=== PATIENT | female | born 1965 | race Caucasian/White ===

== ENCOUNTER 2017-09-21 10:30 | Outpatient (CLI) | payer BC, OTHER ==
--- NOTE | 2017-09-21 12:16 | RAD ---
THREE VIEWS LEFT FINGER: 09/21/2017 HISTORY: Joint pain. COMPARISON: None. FINDINGS: No displaced fracture or evidence of dislocation. No radiopaque foreign body or subcutaneous gas. T here is mild degenerative change involving the distal interphalangeal joint. IMPRESSION: No acute osseous abnormality. POS: [facility]
--- NOTE | 2017-09-21 12:19 | RAD ---
RADIOGRAPH RIGHT THIRD DIGIT 3 VIEWS: Date: 09/21/17 Time: 1110 hours HISTORY: 52-year-old female with pain in joint. FINDINGS: No destructive osseous lesion identified. No periosteal elevation. No fracture or dislocation. Degene rative changes at the DIP are minimal. No major pathology identified involving the MCP and PIP joints . No soft tissue calcifications. IMPRESSION: No major pathology identified. POS: [facility]
== END 2017-09-21 10:31 | disposition home or self-care (01) ==
LOC: RAD 10:30
PROVIDERS: ATTEND Specialist
DX: Z00.00 Encounter for general adult medical examination without abnormal findings (principal)

== ENCOUNTER 2017-10-11 18:20 | Emergency (ER) | payer OTHER ==
[~2017-10-11 18:20] MED LIST: ISOVUE-370 76%-LOCM 1 ML ONE
[2017-10-11 18:46] LABS: #Basophils 0.1 thou/uL (0.0-0.2); #Eosinphils 0.1 thou/uL (0.0-0.7); #Lymphocytes 2.8 thou/uL (1.20-3.40); #Monocytes 0.8 thou/uL (0.11-0.59); #Neutrophils 6.7 thou/uL (1.40-6.50); %Eosinophils 0.7 % (0.0-10.0); %Lymphocytes 26.5 % (21.0-51.0); %Monocytes 7.4 % (0.0-10.0); %Neutrophils 64.3 % (42.0-75.0); Hemoglobin 14.1 g/dL (12.0-16.0); Mean Corpuscular HGB CONC 34.1 g/dL (32.0-36.0); Mean Corpuscular Hemoglobin 30.5 pg (27.0-31.0); Mean Corpuscular Volume 89.5 fl (81.0-99.0); Mean Platelet Volume 6.3 fL (7.4-10.4); Platelet Count 355 thou/uL (130-400); RBC Distribution Width 12.1 % (11.5-14.5); Red Blood Cell (RBC) Count 4.61 mill/uL (4.20-5.40); White Blood Cell (WBC) Count 10.4 thou/uL (4.8-10.8)
[2017-10-11 18:52] LABS: Bilirubin Negative (Negative); Blood, Urine Negative (Negative); Clarity CLEAR (Clear); Glucose, Urine (Dipstick) Negative (Negative); Leukocyte Moderate (Negative); Nitrite Negative (Negative); Protein, Urine (Dipstick) Negative (Neg-Trace); Specific Gravity, Urine 1.014 (1.002-1.036); Urobilinogen 0.2 mg/dL (0.2-1.0)
[2017-10-11 18:54] LABS: Bacteria/HPF None Seen HPF (None Seen); Hyaline Casts/LPF 0-3 HYALINE CAST LPF (0-3 Hyaline); Pathc Cast-AUWi Flag 0.43 (0-2.49); RBC/HPF 0-3 HPF (0-3); Squamous Epithelial 0-3 HPF (0-3)
[2017-10-11 19:07] LABS: ALT (SGPT) 18 U/L (8-55); AST (SGOT) 14 U/L (5-34); Albumin 4.6 g/dL (3.5-5.0); Alkaline Phosphatase 109 U/L (40-150); Anion Gap 10 mmol/L (10-20); BUN (Urea Nitrogen) 17 mg/dL (9.8-20.1); Bilirubin, Total 0.4 mg/dL (0.2-1.2); Calc. Creatinine Clearance 0 mL/min (70-130); Calcium 9.8 mg/dL (7.8-10.44); Carbon Dioxide 25 mmol/L (22-29); Chloride 106 mmol/L (98-107); Estimated GFR-MDRD 76; Globulin 2.8 g/dL (2.4-3.5); Glucose 109 mg/dL (70-105); Lipase 50 U/L (8-78); Potassium 3.8 mmol/L (3.5-5.1); Protein, Total 7.4 g/dL (6.0-8.3); Sodium 137 mmol/L (136-145)
[2017-10-11] MEDS ORDERED: Pantoprazole 40 MG VIAL ONE (21:42)
[2017-10-11] MEDS ORDERED: Metoclopramide HCl 10 MG/2 ML VIAL ONE (21:44)
--- NOTE | 2017-10-11 22:39 | CT ---
ABDOMEN AND PELVIS CT WITH CONTRAST ENTERIC CONTRAST NOT ADMINISTERED PER ORDERING PHYSICIAN REQUEST WHICH PRECLUDES ASSESSMENT OF THE PETE WEL 10/11/[address] CT abdomen and pelvis 02/04/17. INDICATION; Epigastric pain. FINDINGS: Mild volume loss is seen at the lung bases. Evidence of prior cholecystectomy. No peripancreatic infl ammation. Exophytic cyst of the medial right kidney is present, grossly stable in volume given differ ences in technique comparing to prior noncontrast exam. No evidence of hydronephrosis of either kidne y. No adrenal mass. No acute abnormality of the liver or spleen. No pneumoperitoneum or significant a scites. There is colonic diverticulosis. Mild wall prominence of the sigmoid colon may relate to dive rticular disease, incompletely assessed on the basis of technique of the exam. There are scattered at herosclerosis, mild in degree. Electronic device of the left gluteal soft tissues produces streak art ifact limiting visualization of this region. Scattered osseous degenerative change is present. IMPRESSION: 1. Colonic diverticulosis. There is wall prominence of the unopacified, underdistended sigmoid c olon. Correlate clinically. 2. Prior cholecystectomy. 3. No peripancreatic inflammation to account for epigastric pain. 4. Right renal cyst. POS: [facility]
[2017-10-11] MEDS ORDERED: Morphine 4 MG/ML VIAL ONE (22:55)
[2017-10-11] MEDS ORDERED: Ondansetron ODT 4 MG TAB ONE ×2 (22:55→22:56)
[2017-10-11] MEDS ORDERED: diphenhydrAMINE 25 MG CAP ONE (23:14)
== END 2017-10-11 23:51 | disposition home or self-care (01) ==
LOC: ERS 18:20
DX: K52.9 Noninfective gastroenteritis and colitis, unspecified (principal); G43.909 Migraine, unspecified, not intractable, without status migrainosus; Z79.899 Other long term (current) drug therapy
CPT/HCPCS: 36415; 74177; 80053; 81003; 81015; 83690; 85025; 96365; 96375; C9113; J2270; J2765; Q0162

== ENCOUNTER 2017-10-16 22:13 | Emergency (ER) | payer OTHER ==
[2017-10-16 23:15] LABS: #Basophils 0.1 thou/uL (0.0-0.2); #Eosinphils 0.2 thou/uL (0.0-0.7); #Lymphocytes 3.1 thou/uL (1.20-3.40); #Monocytes 0.7 thou/uL (0.11-0.59); #Neutrophils 4.4 thou/uL (1.40-6.50); %Basophils 0.7 % (0.0-1.0); %Eosinophils 2.6 % (0.0-10.0); %Monocytes 8.2 % (0.0-10.0); %Neutrophils 51.4 % (42.0-75.0); Mean Corpuscular HGB CONC 35.5 g/dL (32.0-36.0); Mean Corpuscular Hemoglobin 31.2 pg (27.0-31.0); Mean Corpuscular Volume 87.8 fl (81.0-99.0); Mean Platelet Volume 6.1 fL (7.4-10.4); Platelet Count 341 thou/uL (130-400); Red Blood Cell (RBC) Count 4.51 mill/uL (4.20-5.40); White Blood Cell (WBC) Count 8.5 thou/uL (4.8-10.8)
[2017-10-16 23:34] LABS: ALT (SGPT) 17 U/L (8-55); AST (SGOT) 16 U/L (5-34); Albumin 4.2 g/dL (3.5-5.0); Alkaline Phosphatase 108 U/L (40-150); Anion Gap 13 mmol/L (10-20); BUN (Urea Nitrogen) 19 mg/dL (9.8-20.1); Bilirubin, Total 0.3 mg/dL (0.2-1.2); Calc. Creatinine Clearance 0 mL/min (70-130); Calcium 9.7 mg/dL (7.8-10.44); Carbon Dioxide 24 mmol/L (22-29); Chloride 106 mmol/L (98-107); Estimated GFR-MDRD 75; Glucose 103 mg/dL (70-105); Lipase 49 U/L (8-78); Potassium 4.2 mmol/L (3.5-5.1); Protein, Total 7.2 g/dL (6.0-8.3); Sodium 139 mmol/L (136-145)
[2017-10-17 01:07] LABS: Bilirubin Negative (Negative); Blood, Urine Negative (Negative); Clarity TURBID (Clear); Glucose, Urine (Dipstick) Negative (Negative); Leukocyte Negative (Negative); Nitrite Negative (Negative); Protein, Urine (Dipstick) Negative (Neg-Trace); Specific Gravity, Urine 1.018 (1.002-1.036); Urobilinogen 0.2 mg/dL (0.2-1.0)
== END 2017-10-17 01:51 | disposition home or self-care (01) ==
LOC: ERS 22:13
DX: K52.9 Noninfective gastroenteritis and colitis, unspecified (principal); G43.909 Migraine, unspecified, not intractable, without status migrainosus; Z79.899 Other long term (current) drug therapy
CPT/HCPCS: 36415; 80053; 81003; 83690; 85025; 96372

== ENCOUNTER 2019-01-15 10:01 | Outpatient (CLI) | payer BC, OTHER ==
--- NOTE | 2019-01-15 10:22 | RAD ---
XR Ankle Lt 3 View STANDARD: 01/15/2019 12:00 AM CLINICAL INDICATION: Pain COMPARISON: 01/21/2014 FINDINGS: Fracture:No fracture. Arthropathy:None of significance. Incidental findings:None of significance. IMPRESSION: 1. No acute osseous abnormality.
--- NOTE | 2019-01-15 10:42 | RAD ---
LEFT FOOT 3 VIEWS: Date: 01/15/19 HISTORY: Foot pain. FINDINGS: Small calcaneal spurs are present. Joint spaces are well preserved. Bony demineralization appears nor mal. No fractures. IMPRESSION: Small calcaneal spurs. POS: [facility]
== END 2019-01-15 10:02 | disposition home or self-care (01) ==
LOC: BICRAD 10:01
PROVIDERS: ATTEND Specialist
DX: M25.572 Pain in left ankle and joints of left foot (principal); M77.32 Calcaneal spur, left foot

== ENCOUNTER 2019-01-21 10:54 | Outpatient (CLI) | payer BC ==
--- NOTE | 2019-01-21 14:25 | MMO ---
Bilateral MAMMO Bilat Screen [facility]. CLINICAL HISTORY: Patient is 53 years old and is seen for screening. The patient has the following family history of breast cancer: maternal aunt and cousin gender unknown, at age 38, MATERNAL. The patient has no personal history of cancer. VIEWS: The views performed were: bilateral craniocaudal with tomosynthesis and bilateral mediolateral oblique with tomosynthesis. FILMS COMPARED: The present examination has been compared to prior imaging studies performed at [facility] on 01/30/2007, 10/19/2008, 10/21/2008 and 09/21/2015. MAMMOGRAM FINDINGS: The breasts are heterogeneously dense, which could obscure a lesion on mammography. Finding 1: There are stable benign appearing calcifications seen in both breasts. Finding 2: There is a stable intramammary lymph node seen in the upper region of the right breast. There are no suspicious masses, suspicious calcifications, or new areas of architectural distortion. IMPRESSION: THERE IS NO MAMMOGRAPHIC EVIDENCE OF MALIGNANCY. A ROUTINE FOLLOW-UP MAMMOGRAM IN 1 YEAR IS RECOMMENDED. THE RESULTS OF THIS EXAM WERE SENT TO THE PATIENT. ACR BI-RADS Category 2 - Benign finding MAMMOGRAPHY NOTE: 1. A negative mammogram report should not delay a biopsy if a dominant of clinically suspicious mass is present. 2. Approximately 10% to 15% of breast cancers are not detected by mammography. 3. Adenosis and dense breasts may obscure an underlying neoplasm. Reported by: LUDWIN LIMA MD Electonically Signed: [id number]
== END 2019-01-21 10:55 | disposition home or self-care (01) ==
LOC: BICMAMMO 10:54
PROVIDERS: ATTEND Specialist
DX: Z12.31 Encounter for screening mammogram for malignant neoplasm of breast (principal); Z80.3 Family history of malignant neoplasm of breast
CPT/HCPCS: 77063; 77067

== ENCOUNTER 2019-03-04 10:54 | Outpatient (CLI) | payer BC ==
--- NOTE | 2019-03-04 12:57 | RAD ---
LEFT LEG 2 VIEWS: HISTORY: Left leg pain. FINDINGS/IMPRESSION: Comparison is made with the exam of 10/04/2016. The left tibia and fibula are intact. No fracture, bony destruction, or periosteal reaction is ident ified. POS: [facility]
== END 2019-03-04 10:55 | disposition home or self-care (01) ==
LOC: BICRAD 10:54
PROVIDERS: ATTEND Specialist
DX: M85.462 Solitary bone cyst, left tibia and fibula (principal)

== ENCOUNTER 2019-03-12 08:52 | Inpatient (IN) | payer BC ==
[2019-03-12] MEDS ORDERED: Morphine 4 MG/ML VIAL ONE ×3 (09:37→14:35)
[2019-03-12] MEDS ORDERED: Acetaminophen 500 MG TAB ONE (09:38)
[2019-03-12] MEDS ORDERED: cefTRIAXone\\ROCEPHIN 2 GM VIAL ONE (09:38)
[2019-03-12 09:46] LABS: #Lymphocytes 0.9 thou/uL (1.20-3.40); #Monocytes 0.5 thou/uL (0.11-0.59); #Neutrophils 8.4 thou/uL (1.40-6.50); %Basophils 0.2 % (0.0-1.0); %Eosinophils 0.2 % (0.0-10.0); %Lymphocytes 9.4 % (21.0-51.0); %Monocytes 5.2 % (0.0-10.0); %Neutrophils 85.1 % (42.0-75.0); Hemoglobin 14.5 g/dL (12.0-16.0); Mean Corpuscular HGB CONC 35.3 g/dL (32.0-36.0); Mean Corpuscular Hemoglobin 30.5 pg (27.0-31.0); Mean Corpuscular Volume 86.4 fL (78.0-98.0); Mean Platelet Volume 6.2 fL (7.4-10.4); Platelet Count 261 thou/uL (130-400); RBC Distribution Width 11.7 % (11.5-14.5); Red Blood Cell (RBC) Count 4.75 mill/uL (4.20-5.40); White Blood Cell (WBC) Count 9.8 thou/uL (4.8-10.8)
[2019-03-12 10:09] LABS: ALT (SGPT) 18 U/L (8-55); AST (SGOT) 17 U/L (5-34); Albumin 4.3 g/dL (3.5-5.0); Alkaline Phosphatase 111 U/L (40-150); Anion Gap 14 mmol/L (10-20); BUN (Urea Nitrogen) 12 mg/dL (9.8-20.1); Bilirubin, Total 0.6 mg/dL (0.2-1.2); CK (CPK) 37 U/L (29-168); Calc. Creatinine Clearance 0 mL/min (70-130); Calcium 9.5 mg/dL (7.8-10.44); Carbon Dioxide 20 mmol/L (22-29); Chloride 105 mmol/L (98-107); Estimated GFR-MDRD 72; Globulin 2.7 g/dL (2.4-3.5); Glucose 105 mg/dL (70-105); Sodium 135 mmol/L (136-145)
[2019-03-12] MEDS ORDERED: Ketorolac Tromethamine 30 MG/ML VIAL ONE (10:59)
[2019-03-12 11:01] LABS: CSF, Glucose 57 mg/dl (40-70); CSF, Protein 46 mg/dL (15-40)
[2019-03-12] MEDS ORDERED: Ondansetron PF 4 MG/2 ML Vial ONE (11:33)
[2019-03-12 11:37] LABS: CSF Source CSF; Clarity Clear (Clear)
[2019-03-12 11:38] LABS: Tube # 4
[2019-03-12 11:49] LABS: Bilirubin Negative (Negative); Blood, Urine Negative (Negative); Clarity Clear (Clear); Glucose, Urine (Dipstick) Normal (Negative); Leukocyte Negative Leu/uL (Negative); Nitrite Negative (Negative); Protein, Urine (Dipstick) Negative (Neg-Trace); Urobilinogen Normal mg/dL (Less than 2)
[2019-03-12 12:14] LABS: Color Of CSF Supernatant COLORLESS (Colorless); Tube # 2; Unspun CSF Color COLORLESS (Colorless)
[2019-03-12] MEDS ORDERED: Sodium Chloride 0.9% 1,000 ML IV SCH (15:13)
[2019-03-12 15:23] VITALS: BMI 23.5
[2019-03-12] MEDS ORDERED: Vancomycin HCl 1 GM in Premix Bag 1 BAG IVPB SCH (17:00)
[2019-03-12] MEDS: Dextrose 5 % And 0.9 % NaCl 1,000 ML IV SCH (19:13)
[2019-03-12] MEDS ORDERED: Promethazine HCl 25 MG in Sodium Chloride 0.9% 50 ML IVPB SCH (19:15)
[2019-03-12] MEDS ORDERED: Fentanyl 100 MCG/2 ML VIAL SLOW IVP SCH (19:45)
[2019-03-12] MEDS: Promethazine HCl 25 MG in Sodium Chloride 0.9% 50 ML IVPB SCH (23:06)
[2019-03-13] MEDS: Acetaminophen 650 MG in Premix Bag 1 BAG IVPB PRN ×2 (00:24→17:15)
--- NOTE | 2019-03-13 02:34 | HP ---
CHIEF COMPLAINT ON ADMISSION: Fever of unknown origin. HISTORY OF PRESENT ILLNESS: The patient is a 53-year-old female who about 1 to 2 a.m. on the morning of admission, woke up with severe nausea, headache, neck stiffness, fever and chills. She did not actually vomit, took Tylenol for the fever. This continued to worsen through the day until finally she came to the emergency room at [facility] for further evaluation. She has had a history of meningitis in the past and so this felt very similar to that. She was very worried that the meningitis had returned. She has also history of recurrent migraines and also this was associated with severe body aches, photophobia and cephalgia. In the emergency room, the ER doctor recognized the symptoms of meningismus. He did a spinal tap, which returned completely normal. She improved with fluid. Cultures were taken for the source of the fever. Flu screens were negative and Dr. Mims was contacted about admitting her for further observation while we wait on cultures and treating her presumptively for meningitis until the cultures return negative. PAST MEDICAL HISTORY: Significant as mentioned previously for migraines and a prior history of meningitis many years back. She has also had significant back pain in the past. Her surgeries include laminectomy with spinal stimulator implant, section x2, and hysterectomy. No psychiatric history. SOCIAL HISTORY: She is recently . Denies alcohol or drug use. No smoking history. REVIEW OF SYSTEMS: As mentioned previously, significant for general malaise, fatigue, fever, chills, myalgias. HEENT: Denies sores in ear, nose, or throat, but has a very significant headache. No drainage from these ports of entry. CHEST: Denies cough or shortness of breath. CARDIOVASCULAR: Denies palpitations or chest pain. GI: Admits to nausea. No vomiting. No diarrhea. : Denies dysuria, blood in urine or stool. MUSCULOSKELETAL: Has diffuse major muscle pain in thighs, shoulders in the major muscle groups. SKIN: Without acute rashes or lesions. LYMPHATICS: No areas of bruising, ecchymosis, or edema. NEUROLOGIC: Significant for bad headache. No trouble with mentation or verbalization. No areas of hypesthesia or anesthesia. MEDICATIONS: The medications on arrival, 1. She takes Emgality mostly to prevent migraine headaches. 2. Hormone replacement. ALLERGIES: SHE HAS NO KNOWN DRUG ALLERGIES. PHYSICAL EXAMINATION: VITAL SIGNS: At the time of admission, blood pressure 151/90, pulse 113, respirations 20, and temperature 99.5 in the ER with a pain at a scale of 10/10 in the ER, O2 saturation 98% on room air. GENERAL: This is a well-developed, well-nourished, female, alert, oriented, cooperative. HEENT: Normocephalic, atraumatic. Pupils are equal, round, and reactive to light. Extraocular muscles are intact. TMs, nares, pharynx are clear. NECK: Stiff. Unable to flex and put her chin on her chest due to stiffness and pain. CHEST: Clear to auscultation. BREASTS: Deferred. HEART: Regular rate and rhythm without murmur. ABDOMEN: Soft, nontender without organomegaly. No suprapubic tenderness. : Deferred. EXTREMITIES: Without clubbing, cyanosis, or edema. Normal range of motion has been demonstrated. SKIN: Without acute rashes or lesions. NEUROLOGIC: Cranial nerves are intact. Gait and cerebellar function are untested. Sensory exam is grossly intact. Mental status is at baseline. LABORATORY DATA: Lab work thus far shows WBCs at 9.8, hemoglobin 14.5, hematocrit 41.0 with platelets of 261. Sodium is 135, potassium 4.0, chloride is 105, CO2 of 20, BUN 12, creatinine is 0.82 with a GFR 72, glucose 105, lactic acid 1.4. Liver functions normal. Troponins negative. Urinalysis is completely clean. Lumbar spinal fluid unremarkable except for slight elevation of protein at 46. Cultures are pending. ASSESSMENT: 1. Fever of unknown origin, probably viral. Doubt meningitis due to the clear nature of her cerebrospinal fluid. 2. History of migraines. PLAN: Continue IV fluids and antibiotics. We will continue antiemetics. We will provide patient-controlled anesthesia and await. We will also continue the antibiotics until the cultures have returned negative. We will serially re-evaluate the patient for any significant change in her physical condition. We will also provide antipyretics for fever. Job ID: [id number]
[2019-03-13] MEDS: Dextrose 5 % And 0.9 % NaCl 1,000 ML IV SCH ×3 (02:56→14:07)
[2019-03-13] MEDS: Vancomycin HCl 1 GM in Premix Bag 1 BAG IVPB SCH ×2 (03:35→15:16)
[2019-03-13 04:15] LABS: #Lymphocytes 1.5 thou/uL (1.20-3.40); #Monocytes 0.4 thou/uL (0.11-0.59); #Neutrophils 2.8 thou/uL (1.40-6.50); %Basophils 0.4 % (0.0-1.0); %Eosinophils 0.3 % (0.0-10.0); %Lymphocytes 31.8 % (21.0-51.0); %Monocytes 9.3 % (0.0-10.0); %Neutrophils 58.1 % (42.0-75.0); Hemoglobin 13.1 g/dL (12.0-16.0); Mean Corpuscular HGB CONC 34.7 g/dL (32.0-36.0); Mean Corpuscular Hemoglobin 30.4 pg (27.0-31.0); Mean Corpuscular Volume 87.7 fL (78.0-98.0); Mean Platelet Volume 6.2 fL (7.4-10.4); Platelet Count 212 thou/uL (130-400); RBC Distribution Width 11.7 % (11.5-14.5); Red Blood Cell (RBC) Count 4.29 mill/uL (4.20-5.40); White Blood Cell (WBC) Count 4.8 thou/uL (4.8-10.8)
[2019-03-13 04:34] LABS: Anion Gap 9 mmol/L (10-20); BUN (Urea Nitrogen) 9 mg/dL (9.8-20.1); Calc. Creatinine Clearance 86 mL/min (70-130); Calcium 8.2 mg/dL (7.8-10.44); Carbon Dioxide 21 mmol/L (22-29); Chloride 110 mmol/L (98-107); Estimated GFR-MDRD 80; Glucose 111 mg/dL (70-105); Potassium 3.6 mmol/L (3.5-5.1); Sodium 136 mmol/L (136-145)
[2019-03-13] MEDS: Promethazine HCl 25 MG in Sodium Chloride 0.9% 50 ML IVPB SCH ×4 (05:30→23:12)
[2019-03-13] MEDS: Fentanyl 100 MCG/2 ML VIAL SLOW IVP PRN ×3 (09:35→18:13)
[2019-03-13] MEDS: cefTRIAXone\\ROCEPHIN 2 GM in Sodium Chloride 0.9% 100 ML IVPB SCH (09:38)
[2019-03-13] MEDS ORDERED: Acetaminophen 325 MG TAB PO PRN (21:23)
[2019-03-14] MEDS: Fentanyl 100 MCG/2 ML VIAL SLOW IVP PRN ×4 (00:43→20:07)
[2019-03-14] MEDS: Dextrose 5 % And 0.9 % NaCl 1,000 ML IV SCH ×3 (00:44→19:59)
[2019-03-14 03:04] LABS: #Basophils 0.1 thou/uL (0.0-0.2); #Eosinphils 0.2 thou/uL (0.0-0.7); #Lymphocytes 2.4 thou/uL (1.20-3.40); #Monocytes 0.6 thou/uL (0.11-0.59); #Neutrophils 2.1 thou/uL (1.40-6.50); %Basophils 1.2 % (0.0-1.0); %Eosinophils 3.7 % (0.0-10.0); %Lymphocytes 44.6 % (21.0-51.0); %Monocytes 11.3 % (0.0-10.0); %Neutrophils 39.2 % (42.0-75.0); Hemoglobin 12.7 g/dL (12.0-16.0); Mean Corpuscular HGB CONC 34.9 g/dL (32.0-36.0); Platelet Count 205 thou/uL (130-400); RBC Distribution Width 11.8 % (11.5-14.5); White Blood Cell (WBC) Count 5.3 thou/uL (4.8-10.8)
[2019-03-14 03:23] LABS: Vancomycin, Trough 9.1 ug/mL
[2019-03-14 03:44] LABS: Anion Gap 12 mmol/L (10-20); BUN (Urea Nitrogen) 7 mg/dL (9.8-20.1); Calc. Creatinine Clearance 78 mL/min (70-130); Calcium 8.4 mg/dL (7.8-10.44); Carbon Dioxide 21 mmol/L (22-29); Chloride 113 mmol/L (98-107); Estimated GFR-MDRD 72; Glucose 113 mg/dL (70-105); Potassium 4.3 mmol/L (3.5-5.1); Sodium 142 mmol/L (136-145)
[2019-03-14] MEDS ORDERED: Vancomycin HCl 1.25 GM in Sodium Chloride 0.9% 250 ML 250 ML IVPB SCH (04:00)
[2019-03-14] MEDS: Promethazine HCl 25 MG in Sodium Chloride 0.9% 50 ML IVPB SCH (05:44)
[2019-03-14] MEDS: cefTRIAXone\\ROCEPHIN 2 GM in Sodium Chloride 0.9% 100 ML IVPB SCH (08:56)
[2019-03-14] MEDS ORDERED: Vancomycin HCl 25 MG/ML Oral PO SCH (09:30)
[2019-03-14] MEDS: Promethazine 25 MG TAB PO PRN ×2 (10:50→21:15)
[2019-03-14] MEDS: Vancomycin HCl 25 MG/ML Oral PO SCH ×4 (10:52→19:59)
[2019-03-14] MEDS: Acetaminophen 325 MG TAB PO SCH ×2 (13:30→17:15)
[2019-03-14] MEDS: Methocarbamol 500 MG TAB PO SCH ×3 (14:08→19:59)
[2019-03-15] MEDS: Acetaminophen 325 MG TAB PO SCH ×3 (00:07→12:24)
[2019-03-15] MEDS: Dextrose 5 % And 0.9 % NaCl 1,000 ML IV SCH ×2 (04:18→10:42)
[2019-03-15] MEDS: Fentanyl 100 MCG/2 ML VIAL SLOW IVP PRN ×2 (08:30→12:26)
[2019-03-15] MEDS: Vancomycin HCl 25 MG/ML Oral PO SCH ×2 (10:14→13:28)
[2019-03-15] MEDS: Methocarbamol 500 MG TAB PO SCH ×2 (10:14→13:28)
[2019-03-15 12:54] VITALS: BP 111/73
--- NOTE | 2019-03-15 13:28 | EKG ---
Test Reason : Blood Pressure : / mmHG Vent. Rate : 102 BPM Atrial Rate : 102 BPM P-R Int : 144 ms QRS Dur : 076 ms QT Int : 328 ms P-R-T Axes : 031 -24 041 degrees QTc Int : 427 ms Sinus tachycardia Moderate voltage criteria for LVH, may be normal variant Borderline ECG Confirmed by KHOA BENITO, BHUPENDRA Small ([id number]), news assignment editor ELMO WILLETT ([id number]) on 03/15/2019 1:28:11 PM Referred By: Confirmed By:BHUPENDRA COUCH MD
[2019-03-15 13:35] VITALS: TEMP 97.3
== END 2019-03-15 13:58 | disposition home or self-care (01) | DRG 866 ==
LOC: ERS 08:52 → T4-B 12:30
PROVIDERS: ADMIT Specialist; ATTEND Specialist
DX: B34.9 Viral infection, unspecified (principal); G43.909 Migraine, unspecified, not intractable, without status migrainosus; Z90.710 Acquired absence of both cervix and uterus
CPT/HCPCS: 36415; 62270; 80048; 80053; 80202; 81003; 82550; 82945; 83605; 84157; 84484; 85025; 85652; 87040; 87070; 87086; 87205; 87804; 89051; 93005; 94640; 94760; 96361; 96365; 96375; 96376; J0131; J0696; J1885; J2270; J2405; J2550; J3010; J3370; J3490; J7050; J7620; Q0169

== ENCOUNTER 2019-05-07 12:05 | Outpatient (CLI) | payer BC ==
--- NOTE | 2019-05-07 12:23 | RAD ---
XR Foot Rt 3 View STANDARD: 05/07/2019 12:00 AM CLINICAL INDICATION: Right foot pain COMPARISON: None. FINDINGS: Fracture:No fracture. Arthropathy:None of significance. Incidental findings:None of significance. IMPRESSION: 1. No acute osseous abnormality.
== END 2019-05-07 12:06 | disposition home or self-care (01) ==
LOC: BICRAD 12:05
PROVIDERS: ATTEND Nurse Practitioner
DX: M79.671 Pain in right foot (principal)

== ENCOUNTER 2019-05-12 20:23 | Emergency (ER) | payer BC ==
[~2019-05-12 20:23] MED LIST changes: -ISOVUE-370 76%-LOCM 1 ML ONE; +Iopamidol-370 76% 500 ML 1 ML ONE
[2019-05-12 20:45] LABS: #Basophils 0.1 thou/uL (0.0-0.2); #Eosinphils 0.1 thou/uL (0.0-0.7); #Lymphocytes 3.3 thou/uL (1.20-3.40); #Monocytes 0.7 thou/uL (0.11-0.59); #Neutrophils 5.6 thou/uL (1.40-6.50); %Basophils 0.7 % (0.0-1.0); %Eosinophils 1.2 % (0.0-10.0); %Lymphocytes 33.3 % (21.0-51.0); %Monocytes 7.5 % (0.0-10.0); %Neutrophils 57.3 % (42.0-75.0); Hemoglobin 14.1 g/dL (12.0-16.0); Mean Corpuscular HGB CONC 34.5 g/dL (32.0-36.0); Mean Corpuscular Hemoglobin 30.1 pg (27.0-31.0); Mean Corpuscular Volume 87.2 fL (78.0-98.0); Mean Platelet Volume 6.2 fL (7.4-10.4); Platelet Count 319 thou/uL (130-400); RBC Distribution Width 12.3 % (11.5-14.5); White Blood Cell (WBC) Count 9.8 thou/uL (4.8-10.8)
--- NOTE | 2019-05-12 21:05 | RAD ---
RADIOGRAPH CHEST 1 VIEW: DATE: 05/12/2019 HISTORY: 53-year-old female with chest pain FINDINGS: There are no airspace densities, pulmonary edema, pneumothorax, or cardiomegaly. The lateral costophr enic angles are sharp. IMPRESSION: No acute cardiopulmonary findings.
[2019-05-12 21:11] LABS: ALT (SGPT) 28 U/L (8-55); AST (SGOT) 18 U/L (5-34); Albumin 4.4 g/dL (3.5-5.0); Alkaline Phosphatase 104 U/L (40-110); Anion Gap 12 mmol/L (10-20); BUN (Urea Nitrogen) 15 mg/dL (9.8-20.1); Bilirubin, Total 0.5 mg/dL (0.2-1.2); Calc. Creatinine Clearance 0 mL/min (70-130); Calcium 9.3 mg/dL (7.8-10.44); Carbon Dioxide 24 mmol/L (22-29); Chloride 106 mmol/L (98-107); Estimated GFR-MDRD 79; Globulin 2.6 g/dL (2.4-3.5); Glucose 115 mg/dL (70-105); Lipase 33 U/L (8-78); Potassium 3.8 mmol/L (3.5-5.1); Sodium 138 mmol/L (136-145)
[2019-05-12] MEDS ORDERED: Ondansetron ODT 8 MG TAB ONE (23:09)
[2019-05-12] MEDS ORDERED: Lidocaine Viscous Sol 2% 15 ml UD Cup ONE (23:10)
[2019-05-12] MEDS ORDERED: Mag-Al 1200 mg/1200 mg/30 ML UDCUP ONE (23:10)
[2019-05-13] MEDS ORDERED: Ketorolac Tromethamine 30 MG/ML VIAL ONE (01:54)
--- NOTE | 2019-05-13 07:54 | CT ---
PRELIMINARY REPORT/[facility]/EMERGENCY AFTER HOURS PROCEDURE: PROCEDURE INFORMATION: Exam: CT Angiography Chest With Contrast Exam date and time: 05/13/2019 12:50 AM Clinical history: 53 years old, female; Type not specified; Patient HX: F53 presents to ED for chest pain. PT reports constant chest pain x2 days, mainly epigastric pain, increases w breathing. Also rep orts nausea and dizziness, no HX of similar SX. HX of blood clots in both legs 5 years ago, unknown cause. PT also reports right foot is painful and swollen about a week TECHNIQUE: Imaging protocol: Computed tomographic angiography of the chest with intravenous contrast. 3D renderi ng: MIP reconstructed images were created and reviewed. COMPARISON: No relevant prior studies available. FINDINGS: Tubes, catheters and devices: Stimulator device within the posterior thoracic soft tissues. Pulmonary arteries: No pulmonary embolus. Aorta: Unremarkable. No aortic aneurysm. No aortic dissection. Lungs: Minimal bibasilar atelectasis. 3 mm nodule within the periphery of the lingula (series 3, imag e 62). Pleural space: Unremarkable. No pneumothorax. No pleural effusion. Heart: Unremarkable. No cardiomegaly. No pericardial effusion. Lymph nodes: Unremarkable. No enlarged lymph nodes. Bones/joints: Multilevel thoracic spine degenerative changes. Soft tissues: Unremarkable. IMPRESSION: 1. No pulmonary embolus. 2. 3 mm nodule within the periphery of the lingula (series 3, image 62). Thank you for allowing us to participate in the care of your patient. Dictated and Authenticated by: Jose Alfredo Pratt MD 05/13/2019 1:08 AM Central Time ([place] & [place]) FINAL REPORT CTA CHEST WITH CONTRAST: FINDINGS/IMPRESSION: I agree with the findings and impression given in the preliminary report per [facility] physician. No evide nce of pulmonary thromboembolism. POS: [facility]
--- NOTE | 2019-05-13 08:04 | ULT ---
PRELIMINARY REPORT/[facility]/EMERGENCY AFTER HOURS PROCEDURE: PROCEDURE INFORMATION: Exam: US Duplex Right Lower Extremity Veins, Limited Exam date and time: 05/13/2019 12:56 AM Clinical history: 53 years old, female; Edema, localized; Lower extremity, right; Patient HX: Rle bertrand n/edema - mostly in RT foot x 1 wk TECHNIQUE: Imaging protocol: Real-time Duplex ultrasound of the Right Lower Extremity with 2-D tello scale, color Doppler flow and spectral waveform analysis with image documentation. Limited exam was focused on th e right lower extremity veins. COMPARISON: No relevant prior studies available. FINDINGS: Right deep veins: Unremarkable. The common femoral, femoral, proximal profunda femoral and popliteal veins are patent without thrombus. Normal Doppler waveforms. Normal compressibility and/or augmentati on response. Right superficial veins: Unremarkable. Saphenofemoral junction is patent without thrombus. Soft tissues: Unremarkable. IMPRESSION: No acute findings. No evidence of deep vein thrombosis. Thank you for allowing us to participate in the care of your patient. Dictated and Authenticated by: Jose Alfredo Pratt MD 05/13/2019 1:35 AM Central Time ([place] & [place]) FINAL REPORT EMERGENT AFTER HOURS RIGHT LOWER EXTREMITY VENOUS ULTRASOUND: FINDINGS/IMPRESSION: I agree with the findings and impression given in the preliminary report per [facility] physician. No evid ence of right lower extremity deep vein thrombosis. POS: [facility]
== END 2019-05-13 02:02 | disposition home or self-care (01) ==
LOC: ERS 20:23
DX: R07.89 Other chest pain (principal); G43.909 Migraine, unspecified, not intractable, without status migrainosus; Z79.899 Other long term (current) drug therapy; Z79.891 Long term (current) use of opiate analgesic
CPT/HCPCS: 36415; 71045; 71275; 80053; 83690; 84484; 85025; 85379; 93005; 94760; J1885; Q9967

== ENCOUNTER 2019-07-24 15:15 | Outpatient (CLI) | payer BC ==
--- NOTE | 2019-07-24 17:16 | RAD ---
THREE VIEWS THORACIC SPINE: 07/24/19 COMPARISON: None. HISTORY: Thoracic spine pain. FINDINGS: Three views of the thoracic spine shows normal height and alignment of vertebral bodies and intervert ebral discs without fracture or subluxation. Small osteophytes are seen throughout the thoracic spine . A spinal stimulation device is seen in the cervical spine. IMPRESSION: Mild degenerative changes of the thoracic spine without acute osseous abnormality. POS: [facility]
--- NOTE | 2019-07-24 18:06 | RAD ---
CERVICAL SPINE: 07/24/19 A total of seven views. Lateral views were obtained with neutral, flexion and extension. INDICATIONS: Cervical pain. FINDINGS: Cervical vertebrae maintain height and alignment. The disc spaces are preserved. Minimal posterolisth esis at C5-6 on extension and minimal anterolisthesis at C5-6 on flexion. This appears stable when co mpared to prior exam of 04/10/16. Minimal degenerative spurring which appears stable. Very mild facet hypertrophy which is unchanged. IMPRESSION: Mild degenerative changes of the cervical spine which appears stable from the prior exam of 04/10/16. POS: [facility]
== END 2019-07-24 15:16 | disposition home or self-care (01) ==
LOC: RAD 15:15
PROVIDERS: ATTEND Nurse Practitioner Family
DX: M54.2 Cervicalgia (principal); M54.6 Pain in thoracic spine; M47.812 Spondylosis without myelopathy or radiculopathy, cervical region; M47.814 Spondylosis without myelopathy or radiculopathy, thoracic region
CPT/HCPCS: 72052; 72072

== ENCOUNTER 2019-12-01 13:59 | Emergency (ER) | payer BC, OTHER ==
[2019-12-01] MEDS ORDERED: Fentanyl 100 MCG/2 ML VIAL ONE (14:56)
[2019-12-01] MEDS ORDERED: Ondansetron PF 4 MG/2 ML Vial ONE (14:56)
[2019-12-01 14:59] LABS: #Eosinphils 0.1 thou/uL (0.0-0.7); #Lymphocytes 2.4 thou/uL (1.20-3.40); #Monocytes 0.5 thou/uL (0.11-0.59); #Neutrophils 2.2 thou/uL (1.40-6.50); %Basophils 0.9 % (0.0-1.0); %Eosinophils 2.3 % (0.0-10.0); %Lymphocytes 46.1 % (21.0-51.0); %Monocytes 8.9 % (0.0-10.0); %Neutrophils 41.8 % (42.0-75.0); Hemoglobin 14.5 g/dL (12.0-16.0); Mean Corpuscular HGB CONC 35.7 g/dL (32.0-36.0); Mean Corpuscular Hemoglobin 31.6 pg (27.0-31.0); Mean Corpuscular Volume 88.4 fL (78.0-98.0); Mean Platelet Volume 6.6 fL (7.4-10.4); Platelet Count 322 thou/uL (130-400); RBC Distribution Width 11.6 % (11.5-14.5); Red Blood Cell (RBC) Count 4.59 mill/uL (4.20-5.40); White Blood Cell (WBC) Count 5.2 thou/uL (4.8-10.8)
--- NOTE | 2019-12-01 15:05 | RAD ---
CHEST 1 VIEW: HISTORY: Chest pain, flu-like symptoms, fever, body aches, headache. COMPARISON: 05/12/2019. FINDINGS: Evidence for a dorsal column stimulator lead overlying the mid cervical spine. Heart size is normal. The lungs are clear. No confluent pneumonia, overt edema, or pleural effusion. IMPRESSION: No significant acute intrathoracic disease. Stable from prior study. POS: [facility]
[2019-12-01 15:20] LABS: ALT (SGPT) 24 U/L (8-55); AST (SGOT) 21 U/L (5-34); Albumin 4.2 g/dL (3.5-5.0); Alkaline Phosphatase 101 U/L (40-110); Anion Gap 13 mmol/L (10-20); BUN (Urea Nitrogen) 11 mg/dL (9.8-20.1); Bilirubin, Total 0.4 mg/dL (0.2-1.2); Calc. Creatinine Clearance 0 mL/min (70-130); Calcium 9.4 mg/dL (7.8-10.44); Carbon Dioxide 24 mmol/L (22-29); Chloride 108 mmol/L (98-107); Estimated GFR-MDRD 71; Globulin 2.8 g/dL (2.4-3.5); Glucose 107 mg/dL (70-105); Lipase 37 U/L (8-78); Magnesium 2.1 mg/dL (1.6-2.6); Potassium 3.9 mmol/L (3.5-5.1); Sodium 141 mmol/L (136-145)
[2019-12-01] MEDS ORDERED: Acetaminophen 500 MG TAB ONE (16:45)
[2019-12-01 17:17] LABS: Bilirubin Negative (Negative); Blood, Urine Negative (Negative); Clarity Turbid (Clear); Glucose, Urine (Dipstick) Normal (Negative); Leukocyte 250 Leu/uL (Negative); Nitrite Negative (Negative); Protein, Urine (Dipstick) Negative (Neg-Trace); RBC/HPF 0-3 HPF (0-3); Squamous Epithelial None Seen HPF (0-3); Urobilinogen Normal mg/dL (Less than 2)
[2019-12-01 17:31] LABS: Bacteria/HPF None Seen HPF (None Seen)
[2019-12-02 11:10] LABS: SARS-CoV-2 MS2 Positive; SARS-CoV-2 N Gene Negative; SARS-CoV-2 S Gene Negative; SARS-CoV-2 orf1ab Negative
== END 2019-12-01 16:58 | disposition home or self-care (01) ==
LOC: ERS 13:59
DX: R50.9 Fever, unspecified (principal); R05 Cough; R11.2 Nausea with vomiting, unspecified; R06.02 Shortness of breath; R52 Pain, unspecified; Z20.828 Contact with and (suspected) exposure to other viral communicable diseases; G43.909 Migraine, unspecified, not intractable, without status migrainosus; Z79.899 Other long term (current) drug therapy
CPT/HCPCS: 71045; 80053; 81003; 81015; 83690; 83735; 84484; 85025; 85379; 87635; 87804; 93005; 96374; 96375; J2405; J3010; U0003

== ENCOUNTER 2020-01-02 20:26 | Emergency (ER) | payer BC, OTHER ==
[2020-01-02] MEDS ORDERED: Acetaminophen 500 MG TAB ONE (21:16)
[2020-01-02 21:41] LABS: #Eosinphils 0.1 thou/uL (0.0-0.7); #Lymphocytes 0.9 thou/uL (1.20-3.40); #Monocytes 0.1 thou/uL (0.11-0.59); %Basophils 0.2 % (0.0-1.0); %Eosinophils 0.8 % (0.0-10.0); %Lymphocytes 12.6 % (21.0-51.0); %Monocytes 1.7 % (0.0-10.0); %Neutrophils 84.7 % (42.0-75.0); Hemoglobin 15.4 g/dL (12.0-16.0); Mean Platelet Volume 6.6 fL (7.4-10.4); Platelet Count 321 thou/uL (130-400); RBC Distribution Width 11.6 % (11.5-14.5); Red Blood Cell (RBC) Count 5.15 mill/uL (4.20-5.40); White Blood Cell (WBC) Count 7.1 thou/uL (4.8-10.8)
[2020-01-02 22:01] LABS: ALT (SGPT) 23 U/L (8-55); AST (SGOT) 20 U/L (5-34); Albumin 4.9 g/dL (3.5-5.0); Alkaline Phosphatase 121 U/L (40-110); Anion Gap 16 mmol/L (10-20); BUN (Urea Nitrogen) 12 mg/dL (9.8-20.1); Bilirubin, Total 0.4 mg/dL (0.2-1.2); CK (CPK) 38 U/L (29-168); Calc. Creatinine Clearance 0 mL/min (70-130); Calcium 10.3 mg/dL (7.8-10.44); Carbon Dioxide 21 mmol/L (22-29); Chloride 108 mmol/L (98-107); Estimated GFR-MDRD 64; Globulin 3.4 g/dL (2.4-3.5); Glucose 147 mg/dL (70-105); Protein, Total 8.3 g/dL (6.0-8.3); Sodium 141 mmol/L (136-145)
[2020-01-02 22:09] LABS: Bilirubin Negative (Negative); Blood, Urine Negative (Negative); Clarity Clear (Clear); Glucose, Urine (Dipstick) 50 mg/dL (Negative); Ketone, Urine Negative (Negative); Leukocyte Negative Leu/uL (Negative); Nitrite Negative (Negative); Protein, Urine (Dipstick) Negative (Neg-Trace); Specific Gravity, Urine 1.012 (1.002-1.036); Urobilinogen Normal mg/dL (Less than 2)
--- NOTE | 2020-01-02 22:22 | CT ---
CT ANGIOGRAM THORAX WITH IV CONTRAST AND 3-D RECONSTRUCTIONS CLINICAL INDICATION: Shortness of breath, headache, fever. COMPARISON: 05/13/2019. FINDINGS: Pulmonary arteries: No filling defects are seen in the pulmonary arteries to suggest a pulmonary embo monique. Aorta: Minimal vascular calcifications are seen. Thoracic aorta is normal in caliber without evidence of an aortic dissection. Lungs: Mild dependent atelectasis is present. No consolidation or pleural fluid is identified. A tiny approximately 4 mm noncalcified pulmonary nodule is seen in the left lower lobe (image 63, series 3) which is too small to characterize. There is a tiny nodular density also measuring proximally 4 mm seen at the medial aspect of the right upper lobe. No additional pulmonary nodule or mass is seen. No pleural effusion is identified. Mediastinum: There is no evidence of lymphadenopathy. Thyroid gland: Normal CT appearance. Osseous structures: Mild right convex curvature thoracic spine is present with mild degenerative ford ges in the spine. Chest wall: Metallic leads are seen in the posterior soft tissues incompletely imaged on this exam Upper abdomen: Cholecystectomy changes are noted. Small hiatal hernia is present. IMPRESSION: 1. No CT evidence of a pulmonary embolus. 2. Approximately 4 mm pulmonary nodules in the right upper lobe and left lower lobe which are too sma ll to further characterize.
[2020-01-02] MEDS ORDERED: Ketorolac Tromethamine 30 MG/ML VIAL ONE (22:24)
[2020-01-02] MEDS ORDERED: diphenhydrAMINE 50 MG/ML VIAL ONE (23:57)
[2020-01-02] MEDS ORDERED: Metoclopramide HCl 10 MG/2 ML VIAL ONE (23:57)
[2020-01-03] MEDS ORDERED: Dexamethasone 10 MG/ML VIAL ONE (00:52)
[2020-01-03] MEDS ORDERED: Magnesium 2 GM/50 ML BAG (IN WATER) ONE (00:52)
== END 2020-01-03 02:30 | disposition home or self-care (01) ==
LOC: ERS 20:26
DX: J06.9 Acute upper respiratory infection, unspecified (principal); G43.909 Migraine, unspecified, not intractable, without status migrainosus; Z20.828 Contact with and (suspected) exposure to other viral communicable diseases; Z79.899 Other long term (current) drug therapy
CPT/HCPCS: 71275; 80053; 81003; 82550; 83880; 84484; 85025; 93005; 96361; 96365; 96367; 96375; J1100; J1200; J1885; J2765; J3475; Q9967

== ENCOUNTER 2020-04-23 18:34 | Emergency (ER) | payer BC ==
[2020-04-23 19:27] LABS: #Basophils 0.1 thou/uL (0.0-0.2); #Lymphocytes 2.1 thou/uL (1.20-3.40); #Monocytes 0.5 thou/uL (0.11-0.59); %Basophils 0.9 % (0.0-1.0); %Eosinophils 0.4 % (0.0-10.0); %Lymphocytes 31.4 % (21.0-51.0); %Monocytes 7.6 % (0.0-10.0); %Neutrophils 59.8 % (42.0-75.0); Hemoglobin 15.9 g/dL (12.0-16.0); Mean Corpuscular HGB CONC 35.4 g/dL (32.0-36.0); Mean Corpuscular Hemoglobin 31.1 pg (27.0-31.0); Mean Corpuscular Volume 87.8 fL (78.0-98.0); Mean Platelet Volume 6.5 fL (7.4-10.4); Platelet Count 359 thou/uL (130-400); Red Blood Cell (RBC) Count 5.11 mill/uL (4.20-5.40); White Blood Cell (WBC) Count 6.6 thou/uL (4.8-10.8)
--- NOTE | 2020-04-23 19:43 | RAD ---
PORTABLE CHEST: 04/23/20 HISTORY: Elevated blood pressure and chest pain. COMPARISON: 12/21/19 exam. Heart size and mediastinum are within normal limits. The lungs are clear of any infiltrates. Stimulat or device is seen with leads going towards the cervical spine region. IMPRESSION: No active intrathoracic disease. POS: [facility]
[2020-04-23 19:47] LABS: ALT (SGPT) 18 U/L (8-55); AST (SGOT) 17 U/L (5-34); Albumin 4.9 g/dL (3.5-5.0); Alkaline Phosphatase 120 U/L (40-110); Anion Gap 15 mmol/L (10-20); BUN (Urea Nitrogen) 11 mg/dL (9.8-20.1); Bilirubin, Total 0.6 mg/dL (0.2-1.2); Calc. Creatinine Clearance 0 mL/min (70-130); Calcium 9.8 mg/dL (7.8-10.44); Carbon Dioxide 25 mmol/L (22-29); Chloride 104 mmol/L (98-107); Estimated GFR-MDRD 72; Globulin 3.2 g/dL (2.4-3.5); Glucose 110 mg/dL (70-105); Protein, Total 8.1 g/dL (6.0-8.3); Sodium 140 mmol/L (136-145)
--- NOTE | 2020-04-23 20:37 | CT ---
CT ANGIO OF CHEST PERFORMED WITH INTRAVENOUS CONTRAST ENHANCEMENT WITH 3D RECONSTRUCTIONS: 04/23/20 HISTORY: Chest pain, elevated blood pressure. COMPARISON: A 01/02/20 exam. The lungs are clear of any infiltrative process. [place] dependent atelectasis is seen. Tiny 3 mm lef t upper lobe pulmonary nodules seen on axial image 55 is felt to be stable as compared to the prior e xamination. Second small nodule along the major fissure is also unchanged. There is no significant mediastinal or hilar lymphadenopathy. No significant axillary adenopathy. Thoracic aorta is normal in caliber. There is good pulmonary artery opacification, there is no Ct jasmina dence for pulmonary embolus. The visualized liver parenchyma shows no focal findings. Small hiatal hernia is noted. IMPRESSION: 1. Small hiatal hernia. 2. No CT evidence for pulmonary embolus. POS: [facility]
[2020-04-23] MEDS ORDERED: Acetaminophen 500 MG TAB ONE (21:47)
[2020-04-23] MEDS ORDERED: Ketorolac Tromethamine 30 MG/ML VIAL ONE (22:13)
== END 2020-04-23 23:14 | disposition home or self-care (01) ==
LOC: ERS 18:34
DX: R07.9 Chest pain, unspecified (principal); I10 Essential (primary) hypertension; G43.909 Migraine, unspecified, not intractable, without status migrainosus
CPT/HCPCS: 36415; 71045; 71275; 80053; 84484; 85025; 93005; 96374; J1885; Q9967

== ENCOUNTER 2020-05-24 11:17 | Emergency (ER) | payer BC ==
--- NOTE | 2020-05-24 15:11 | ULT ---
VENOUS DOPPLER ULTRASOUND OF THE RIGHT LOWER EXTREMITY: Date: 05/24/2020 HISTORY: Right leg pain. TECHNIQUE: [place] scale ultrasound with color flow and spectral Doppler imaging of the deep venous system of the r ight lower extremity performed. FINDINGS: There is absence of compression due to intraluminal thrombus in the right common femoral vein. There is also occlusion due to thrombus in the greater saphenous vein. The remainder of the deep venous sys tem of the right lower extremity otherwise patent. IMPRESSION: Findings are consistent with deep venous thrombosis of the right lower extremity. Discussed over the telephone with Barbara Champagne NP, at 1458 hours. CODE CR. POS: [facility]
[2020-05-24 15:51] LABS: #Basophils 0.1 thou/uL (0.0-0.2); #Eosinphils 0.2 thou/uL (0.0-0.7); #Lymphocytes 2.6 thou/uL (1.20-3.40); #Monocytes 0.9 thou/uL (0.11-0.59); #Neutrophils 4.7 thou/uL (1.40-6.50); %Basophils 1.3 % (0.0-1.0); %Eosinophils 1.8 % (0.0-10.0); %Lymphocytes 31.1 % (21.0-51.0); %Monocytes 10.2 % (0.0-10.0); %Neutrophils 55.7 % (42.0-75.0); Hemoglobin 15.1 g/dL (12.0-16.0); Mean Corpuscular Hemoglobin 31.6 pg (27.0-31.0); Mean Corpuscular Volume 90.2 fL (78.0-98.0); Mean Platelet Volume 6.7 fL (7.4-10.4); Platelet Count 309 thou/uL (130-400); RBC Distribution Width 12.1 % (11.5-14.5); Red Blood Cell (RBC) Count 4.78 mill/uL (4.20-5.40); White Blood Cell (WBC) Count 8.4 thou/uL (4.8-10.8)
[2020-05-24 16:54] LABS: Bilirubin Negative (Negative); Blood, Urine Negative (Negative); Clarity Turbid (Clear); Glucose, Urine (Dipstick) Normal (Negative); Ketone, Urine Negative (Negative); Leukocyte 75 Leu/uL (Negative); Nitrite 2+ (Negative); Protein, Urine (Dipstick) Negative (Neg-Trace); RBC/HPF 0-3 HPF (0-3); Specific Gravity, Urine 1.021 (1.002-1.036); Squamous Epithelial None Seen HPF (0-3); Urobilinogen Normal mg/dL (Less than 2)
[2020-05-24 16:55] LABS: Bacteria/HPF 1+ HPF (None Seen)
[2020-05-24 17:27] LABS: Anion Gap 15 mmol/L (10-20); BUN (Urea Nitrogen) 14 mg/dL (9.8-20.1); Calc. Creatinine Clearance 0 mL/min (70-130); Calcium 9.6 mg/dL (7.8-10.44); Carbon Dioxide 24 mmol/L (22-29); Chloride 106 mmol/L (98-107); Estimated GFR-MDRD 74; Glucose 86 mg/dL (70-105); Potassium 4.1 mmol/L (3.5-5.1); Sodium 141 mmol/L (136-145)
[2020-05-24] MEDS ORDERED: Enoxaparin Sodium 60 MG/0.6 ML SYRINGE ONE (17:33)
== END 2020-05-24 16:45 | disposition home or self-care (01) ==
LOC: ERS 11:17
DX: I82.411 Acute embolism and thrombosis of right femoral vein (principal); I82.813 Embolism and thrombosis of superficial veins of lower extremities, bilateral; N39.0 Urinary tract infection, site not specified; G43.909 Migraine, unspecified, not intractable, without status migrainosus; Z79.899 Other long term (current) drug therapy
CPT/HCPCS: 36415; 80048; 81003; 81015; 83880; 85025; 85379; 93005; 96372; J1650

== ENCOUNTER 2020-06-11 07:04 | Outpatient (CLI) | payer BC ==
--- NOTE | 2020-06-11 08:15 | ULT ---
ULTRASOUND DOPPLER DUPLEX VENOUS RIGHT LOWER EXTREMITY: DATE: 06/11/2020 HISTORY: Follow-up DVT in 54-year-old female TECHNIQUE: Grayscale, color-flow, and spectral analysis, of major veins of right lower extremity. FINDINGS: There is demonstration of blood flow with normal compressibility, of the right common femoral, profun da femoral, greater saphenous, femoral, popliteal, and posterior tibial, veins. Incomplete compressibility without obstruction of flow throughout greater saphenous vein and lesser saphenous ve in, from groin down to the mid calf. IMPRESSION: 1). No deep venous thrombosis of right lower extremity. 2) nonocclusive superficial venous thrombus remains throughout right greater saphenous vein and lesse r saphenous vein.
== END 2020-06-11 07:05 | disposition home or self-care (01) ==
LOC: BICULT 07:04
PROVIDERS: ATTEND Specialist
DX: I82.401 Acute embolism and thrombosis of unspecified deep veins of right lower extremity (principal)

== ENCOUNTER 2020-08-18 17:29 | Emergency (ER) | payer BC, OTHER ==
[2020-08-18 18:21] LABS: #Basophils 0.1 thou/uL (0.0-0.2); #Eosinphils 0.1 thou/uL (0.0-0.7); #Monocytes 0.7 thou/uL (0.11-0.59); #Neutrophils 3.7 thou/uL (1.40-6.50); %Basophils 0.9 % (0.0-1.0); %Eosinophils 0.8 % (0.0-10.0); %Lymphocytes 40.3 % (21.0-51.0); %Monocytes 9.4 % (0.0-10.0); %Neutrophils 48.5 % (42.0-75.0); Hemoglobin 14.2 g/dL (12.0-16.0); Mean Corpuscular HGB CONC 35.6 g/dL (32.0-36.0); Mean Corpuscular Hemoglobin 31.9 pg (27.0-31.0); Mean Corpuscular Volume 89.7 fL (78.0-98.0); Mean Platelet Volume 6.3 fL (7.4-10.4); Platelet Count 321 thou/uL (130-400); RBC Distribution Width 11.9 % (11.5-14.5); Red Blood Cell (RBC) Count 4.44 mill/uL (4.20-5.40); White Blood Cell (WBC) Count 7.5 thou/uL (4.8-10.8)
[2020-08-18 18:40] LABS: ALT (SGPT) 19 U/L (8-55); AST (SGOT) 21 U/L (5-34); Albumin 4.3 g/dL (3.5-5.0); Alkaline Phosphatase 100 U/L (40-110); Anion Gap 13 mmol/L (10-20); BUN (Urea Nitrogen) 16 mg/dL (9.8-20.1); Bilirubin, Total 0.8 mg/dL (0.2-1.2); CK (CPK) 74 U/L (29-168); Calc. Creatinine Clearance 0 mL/min (70-130); Calcium 9.1 mg/dL (7.8-10.44); Carbon Dioxide 25 mmol/L (22-29); Chloride 106 mmol/L (98-107); Globulin 2.5 g/dL (2.4-3.5); Glucose 97 mg/dL (70-105); Lipase 24 U/L (8-78); Potassium 3.7 mmol/L (3.5-5.1); Protein, Total 6.8 g/dL (6.0-8.3); Sodium 140 mmol/L (136-145)
--- NOTE | 2020-08-18 18:46 | CT ---
CT head noncontrast HISTORY: Altered mental status. COMPARISON: 10/04/2016. FINDINGS: There is no evidence of acute intracranial hemorrhage or infarct. The ventricles appear nor mal in size, shape and position. Dystrophic calcification at the left basal ganglia. There is no mass effect or shift of midline structures. Visualized paranasal sinuses remain well aerated. IMPRESSION : No acute abnormalities are demonstrated.
--- NOTE | 2020-08-18 19:08 | RAD ---
PA CHEST: HISTORY: Elevated blood pressure. COMPARISON: 04/23/2020 FINDINGS: The lung lynn are clear. Heart and mediastinum appear normal. Vasculature normal. Stimulator leads again noted overlying the cervical spine. IMPRESSION: No acute process. POS: [facility]
[2020-08-18] MEDS ORDERED: Ketorolac Tromethamine 30 MG/ML VIAL ONE (19:13)
[2020-08-18] MEDS ORDERED: Metoclopramide HCl 10 MG/2 ML VIAL ONE (19:13)
--- NOTE | 2020-08-21 14:26 | EKG ---
Test Reason : ER Blood Pressure : / mmHG Vent. Rate : 089 BPM Atrial Rate : 089 BPM P-R Int : 128 ms QRS Dur : 072 ms QT Int : 364 ms P-R-T Axes : 018 -14 042 degrees QTc Int : 442 ms Normal sinus rhythm Minimal voltage criteria for LVH, may be normal variant Nonspecific ST abnormality Abnormal ECG Confirmed by GABRIELA ROMO DO ([id number]), website/blog editor ELMO WILLETT ([id number]) on 08/21/2020 2:26:38 PM Referred By: Confirmed By:GABRIELA ROMO DO
== END 2020-08-18 20:29 | disposition home or self-care (01) ==
LOC: ERS 17:29
DX: G43.809 Other migraine, not intractable, without status migrainosus (principal)
CPT/HCPCS: 36415; 70450; 71045; 80053; 82550; 83690; 84484; 85025; 93005; 96365; 96375; J1885; J2765

== ENCOUNTER 2020-08-23 13:43 | Emergency (ER) | payer BC ==
[2020-08-23] MEDS ORDERED: Magnesium 2 GM/50 ML BAG (IN WATER) ONE (16:25)
[2020-08-23] MEDS ORDERED: Metoclopramide HCl 10 MG/2 ML VIAL ONE (16:25)
[2020-08-23] MEDS ORDERED: diphenhydrAMINE 50 MG/ML VIAL ONE (16:25)
== END 2020-08-23 17:40 | disposition home or self-care (01) ==
LOC: ERS 13:43
DX: R51.9 Headache, unspecified (principal); I10 Essential (primary) hypertension; Z79.899 Other long term (current) drug therapy
CPT/HCPCS: 96365; 96368; 96375; J1200; J2765; J3475

== ENCOUNTER 2022-02-09 09:16 | Emergency (ER) | payer SELFPAY ==
[2022-02-09] MEDS ORDERED: Ketorolac Tromethamine 30 MG/ML VIAL ONE (09:42)
[2022-02-09] MEDS ORDERED: Orphenadrine Citrate 60 MG/2 ML VIAL IM SCH (10:00)
[2022-02-09] MEDS ORDERED: predniSONE 20 MG TAB ONE (11:50)
[2022-02-09] MEDS ORDERED: HYDROcodone/Acetaminophen 5/325 mg Tablet ONE (11:50)
== END 2022-02-09 13:45 | disposition home or self-care (01) ==
LOC: ERS 09:16
DX: M54.41 Lumbago with sciatica, right side (principal); M54.42 Lumbago with sciatica, left side
CPT/HCPCS: 72170; 96372; J1885; J2360; J7512

== ENCOUNTER 2022-04-18 10:21 | Emergency (ER) | payer SELFPAY | END 2022-04-18 12:03 | disposition home or self-care (01) | LOC: ERS 10:21 | DX: L01.00 Impetigo, unspecified (principal) | CPT/HCPCS: 99282 ==

== ENCOUNTER 2025-02-08 13:28 | Emergency (ER) | payer SELFPAY ==
[2025-02-08 14:06] LABS: #Basophils 0.07 10x3/uL (0.0-0.2); #Eosinophils 0.11 10x3/uL (0.0-0.7); #Monocytes 0.63 10x3/uL (0.11-0.59); #Neutrophils 5.22 10x3/uL (1.40-6.50); %Basophils 0.9 % (0.0-1.0); %Eosinophils 1.3 % (0.0-10.0); %Lymphocytes 26.2 % (21.0-51.0); %Monocytes 7.7 % (0.0-10.0); %Neutrophils 63.7 % (42.0-75.0); Hematocrit 40.9 % (36.0-47.0); Hemoglobin 13.7 g/dL (12.0-16.0); Mean Corpuscular Hemoglobin 30.2 pg (27.0-31.0); Mean Corpuscular Volume 90.3 fL (78.0-98.0); Platelet Count 330 10x3/uL (130-400); Red Blood Cell (RBC) Count 4.53 mill/uL (4.20-5.40); White Blood Cell (WBC) Count 8.20 10x3/uL (4.8-10.8)
[2025-02-08 14:21] LABS: CRP,High Sensitivity (Inhouse) 0.59 mg/dL (< or = 0.5)
[2025-02-08 14:22] LABS: ALT (SGPT) 13 U/L (Less than 34); AST (SGOT) 17 U/L (11-34); Albumin 4.0 g/dL (3.1-4.5); Alkaline Phosphatase 99 U/L (40-110); Anion Gap 14 mmol/L (10-20); BUN (Urea Nitrogen) 10 mg/dL (9.8-20.1); Bilirubin, Total 0.3 mg/dL (0.3-1.2); Calc. Creatinine Clearance 0 mL/min (70-130); Calcium 9.3 mg/dL (7.8-10.44); Carbon Dioxide 22 mmol/L (23-31); Chloride 108 mmol/L (98-107); Globulin 3.3 g/dL (2.4-3.5); Glucose 106 mg/dL (80-115); Potassium 4.4 mmol/L (3.5-5.1); Sodium 140 mmol/L (136-145)
[2025-02-08] MEDS ORDERED: Ketorolac Tromethamine 30 MG (1 mL) VIAL ONE (15:10)
== END 2025-02-08 15:21 | disposition home or self-care (01) ==
LOC: ERS 13:28
DX: L03.312 Cellulitis of back [any part except buttock and flank] (principal); Z79.899 Other long term (current) drug therapy
CPT/HCPCS: 80053; 83605; 85025; 86141; J1885

== ENCOUNTER 2025-04-28 14:33 | Emergency (ER) | payer SELFPAY ==
[~2025-04-28 14:33] MED LIST changes: -Iopamidol-370 76% 500 ML 1 ML ONE; +Iopamidol-370 76% 500 ML MDV (1 ML CHARGE) ONE
[2025-04-28 15:39] LABS: #Basophils 0.05 10x3/uL (0.0-0.2); #Eosinophils 0.07 10x3/uL (0.0-0.7); #Monocytes 0.60 10x3/uL (0.11-0.59); #Neutrophils 4.12 10x3/uL (1.40-6.50); %Basophils 0.7 % (0.0-1.0); %Eosinophils 1.0 % (0.0-10.0); %Lymphocytes 31.1 % (21.0-51.0); %Monocytes 8.5 % (0.0-10.0); %Neutrophils 58.4 % (42.0-75.0); Hematocrit 40.2 % (36.0-47.0); Hemoglobin 13.6 g/dL (12.0-16.0); Mean Corpuscular Hemoglobin 29.7 pg (27.0-31.0); Mean Corpuscular Volume 87.8 fL (78.0-98.0); Platelet Count 281 10x3/uL (130-400); Red Blood Cell (RBC) Count 4.58 mill/uL (4.20-5.40); White Blood Cell (WBC) Count 7.05 10x3/uL (4.8-10.8)
[2025-04-28] MEDS ORDERED: Ketorolac Tromethamine 30 MG (1 mL) VIAL ONE (15:39)
[2025-04-28 15:53] LABS: ALT (SGPT) 12 U/L (Less than 34); AST (SGOT) 29 U/L (11-34); Albumin 4.1 g/dL (3.1-4.5); Alkaline Phosphatase 111 U/L (40-110); Anion Gap 17 mmol/L (10-20); BUN (Urea Nitrogen) 10 mg/dL (9.8-20.1); Bilirubin, Total 0.2 mg/dL (0.3-1.2); Calc. Creatinine Clearance 0 mL/min (70-130); Calcium 9.2 mg/dL (7.8-10.44); Carbon Dioxide 19 mmol/L (23-31); Chloride 110 mmol/L (98-107); Globulin 2.9 g/dL (2.4-3.5); Glucose 108 mg/dL (80-115); Potassium 4.5 mmol/L (3.5-5.1); Sodium 141 mmol/L (136-145)
[2025-04-28 16:12] LABS: Bacteria/HPF None Seen HPF (None Seen); CAUTI Indications for Culture Pelvic or flank pain; Glucose, Urine (Dipstick) Normal (Negative); Leukocyte Negative Leu/uL (Negative); Protein, Urine (Dipstick) Negative (Neg-Trace); RBC/HPF 0-3 HPF (0-3); Specific Gravity, Urine 1.014 (1.002-1.036); WBC/HPF 0-3 HPF (0-3)
[2025-04-28 16:14] LABS: Urine Culture Reflex No No
[2025-04-28] MEDS ORDERED: Cyclobenzaprine 10 MG TAB ONE (18:28)
[2025-04-28] MEDS ORDERED: Ondansetron PF 4 MG/2 ML Vial ONE (18:42)
[2025-04-28] MEDS ORDERED: HYDROcodone/Acetaminophen 10/325 mg Tablet ONE (19:59)
== END 2025-04-28 20:08 | disposition home or self-care (01) ==
LOC: ERS 14:33
DX: M54.50 Low back pain, unspecified (principal); E78.5 Hyperlipidemia, unspecified; G43.909 Migraine, unspecified, not intractable, without status migrainosus; Z79.899 Other long term (current) drug therapy
CPT/HCPCS: 74177; 80053; 81001; 85025; 96374; 96375; J1885; J2270; J2405; J2919; Q9967